=== PATIENT | female | born 1960 | race Caucasian/White ===

== ENCOUNTER 2018-07-17 15:03 | Outpatient (CLI) | payer OTHER ==
[2018-07-17 19:06] LABS: ALBUMIN 4.1 g/dL (3.2-5.5); ALBUMIN/GLOBULIN RATIO 1.6 (1.0-2.2); BILIRUBIN,TOTAL 0.6 mg/dL (0.2-1.0); CALCIUM 10.2 mg/dL (8.5-10.3); CREATININE 0.9 mg/dL (0.4-1.0); TOTAL PROTEIN 6.7 g/dL (6.7-8.2)
== END 2018-07-17 23:59 | disposition home or self-care (01) ==
LOC: LAB.WCP 15:03
PROVIDERS: ATTEND Family Medicine
DX: E87.5 Hyperkalemia (principal)
CPT/HCPCS: 36415; 80053

== ENCOUNTER 2019-07-01 08:00 | Outpatient (CLI) | payer OTHER ==
[2019-07-01 13:14] LABS: BASOPHILS # (AUTO) 0.1 10^3/uL (0.0-0.1); BASOPHILS % (AUTO) 0.7 %; EOSINOPHILS # (AUTO) 0.1 10^3/uL (0.0-0.7); EOSINOPHILS % (AUTO) 1.5 %; HGB - HEMOGLOBIN 16.2 g/dL (12.0-16.0); LYMPHOCYTES # (AUTO) 2.4 10^3/uL (1.5-3.5); LYMPHOCYTES % (AUTO) 25.4 %; MEAN CORPUSCULAR HEMOGLOBIN 33.6 pg (27.0-31.0); MEAN CORPUSCULAR HGB CONC 32.7 g/dL (32.0-36.0); MEAN CORPUSCULAR VOLUME 102.9 fL (81.0-99.0); MEAN PLATELET VOLUME 11.5 fL (7.9-10.8); MONOCYTES # (AUTO) 0.7 10^3/uL (0.0-1.0); MONOCYTES % (AUTO) 7.7 %; NEUTROPHILS # (AUTO) 6.1 10^3/uL (1.5-6.6); NEUTROPHILS % (AUTO) 64.1 %; PLT - PLATELET COUNT 195 10^3/uL (130-450); RED BLOOD COUNT 4.82 10^6/uL (4.20-5.40); RED CELL DISTRIBUTION WIDTH 14.9 % (12.0-15.0); WHITE BLOOD COUNT 9.5 x10^3/uL (4.8-10.8)
[2019-07-01 13:55] LABS: ALBUMIN 4.2 g/dL (3.2-5.5); ALBUMIN/GLOBULIN RATIO 1.4 (1.0-2.2); ALKALINE PHOSPHATASE 43 IU/L (42-121); ALT ALANINE AMINOTRANSFERASE 22 IU/L (10-60); AST ASPARTATE AMINOTRANSFERASE 19 IU/L (10-42); BILIRUBIN,TOTAL 0.6 mg/dL (0.2-1.0); BUN - BLOOD UREA NITROGEN 19 mg/dL (6-20); CARBON DIOXIDE - CO2 26 mmol/L (21-32); CHLORIDE 105 mmol/L (101-111); CHOL/HDL RATIO 1.7 (<4.4); CHOLESTEROL 141 mg/dL; CREATININE 0.8 mg/dL (0.4-1.0); GLUCOSE 129 mg/dL (70-100); HDL CHOLESTEROL 82 mg/dL; LDL CHOLESTEROL,CALCULATED 49 mg/dL; LDL/HDL RATIO 0.6 (<4.4); SODIUM 138 mmol/L (135-145); TOTAL PROTEIN 7.2 g/dL (6.7-8.2); VLDL CHOLESTEROL 10 mg/dL
[2019-07-01 13:57] LABS: HB2 TOTAL 17.2 g/dL; HEMOGLOBIN A1C 0.72 g/dL
[2019-07-01 13:59] LABS: CREATININE,URINE 68.4 mg/dL; MICROALBUM/CREATININE RATIO,UR 4.4 ug/mg (<30.0); MICROALBUMIN,URINE 0.3 mg/dL (0-300.0)
== END 2019-07-01 23:59 ==
LOC: LAB.WCP 08:00
PROVIDERS: ATTEND Physician Assistant Medical
DX: I10 Essential (primary) hypertension (principal); E78.5 Hyperlipidemia, unspecified; E11.9 Type 2 diabetes mellitus without complications
CPT/HCPCS: 36415; 80053; 80061; 82043; 82570; 83036; 83721; 84443; 85025

== ENCOUNTER → 2020-01-07 | Outpatient (CLI) | payer MEDICAID, OTHER ==
[2020-01-07 16:13] LABS: BILIRUBIN,URINE NEGATIVE (NEGATIVE); CLARITY,URINE CLEAR (CLEAR); GLUCOSE, URINE (UA) 500 mg/dL (NEGATIVE); KETONES,URINE (UA) NEGATIVE (NEGATIVE); LEUKOCYTE ESTERASE, URINE TRACE (NEGATIVE); NITRITE,URINE NEGATIVE (NEGATIVE); OCCULT BLOOD,URINE NEGATIVE (NEGATIVE); PROTEIN,URINE NEGATIVE (NEGATIVE); UROBILINOGEN,URINE 0.2 (NORMAL) E.U./dL (NORMAL)
[2020-01-07 16:26] LABS: BACTERIA,URINE Few /HPF (None Seen); RBC,URINE None Seen /HPF (0-5); SQUAMOUS EPITHELIAL CELL,UR MOD Squamous (<= Few)
== END ==
LOC: LAB.N 12:30
DX: M25.552 Pain in left hip (principal)
CPT/HCPCS: 81001; 81003; 87086

== ENCOUNTER 2020-01-08 20:46 | Emergency (ER) | payer MEDICAID, OTHER ==
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
[2020-01-08] MEDS ORDERED: diazePAM 5 MG TABLET PO STA (22:41)
[2020-01-08] MEDS: HYDROcod/ACETAM 5/325 MG TABLET PO STA (23:11)
[2020-01-09 00:53] VITALS: BP 142/65
--- NOTE | 2020-01-09 07:18 | XRAY Report ---
PROCEDURE: Lumbar Spine 2 View INDICATIONS: low back pain TECHNIQUE: 2 views of the lumbar spine were acquired. COMPARISON: None. FINDINGS: Bones: 6 [id number] vertebrae are present. Questionable pars defect at L5 resulting in trace an terolisthesis L5 on L6. Moderate disc height loss and mild endplate spurring at L4-5. Mild disc space narrowing at the other levels.. No vertebral body compression fractures. No suspicious bony lesion s. Soft tissues: Overlying bowel gas pattern is normal. No suspicious soft tissue calcifications. Mode rate abdominal aortic calcification. Tubal ligation clips. Right hip prosthesis. IMPRESSION: 1. Possible pars defects at L5 and anterolisthesis at L5 6. Consider MRI for further evaluation of ne ural foramen and central canal. 2. Multilevel disc degeneration. 3. Concordant with preliminary report. Reviewed by: Raina Manzanares MD on 01/09/2020 7:17 AM PST Approved by: Raina Manzanares MD on 01/09/2020 7:17 AM PST Station ID: [id number]
== END 2020-01-09 00:52 | disposition home or self-care (01) ==
LOC: ED 20:46
DX: M51.36 Other intervertebral disc degeneration, lumbar region (principal); I10 Essential (primary) hypertension; E10.9 Type 1 diabetes mellitus without complications; Z79.82 Long term (current) use of aspirin
CPT/HCPCS: 72100; 99283; A9270

== ENCOUNTER 2020-03-03 07:00 | Outpatient (CLI) | payer MEDICAID | END 2020-03-03 23:59 | disposition home or self-care (01) | LOC: COV 07:00 | PROVIDERS: ATTEND Surgery | DX: Z01.812 Encounter for preprocedural laboratory examination (principal); K62.9 Disease of anus and rectum, unspecified; E11.9 Type 2 diabetes mellitus without complications; Z79.4 Long term (current) use of insulin; Z20.822 Contact with and (suspected) exposure to COVID-19 ==

== ENCOUNTER 2020-03-07 07:24 | Day surgery (SDC) | payer MEDICAID ==
[~2020-03-07 07:24] MED LIST: ceFAZolin 2 GM/50 ML 2 GM/50 ML BAG IV ONE
[2020-03-07] MEDS ORDERED: LACTATED RINGERS 1,000 ML IV ONE ×2 (07:30→09:31)
--- NOTE | 2020-03-07 08:08 | ANESTHESIA ---
Pre-Anesthesia VS, & Labs - Diagnosis possible anal cancer - Procedure EUA with biopsies Vital Signs: Temp Pulse Resp BP Pulse Ox 36 C L 86 12 131/108 H 12 L 03/07/20 07:41 03/07/20 07:41 03/07/20 07:41 03/07/20 07:41 03/07/20 07:41 Height: 5 ft 6 in Weight (kg): 103 kg Body Mass Index: 36.6 BMI Classification: Obese - NPO >8 hours - Is Patient ?: No - Lab Results Lab results reviewed: Yes Home Medications and Allergies Home Medications: Ambulatory Orders Lactobacillus Acidophilus [Probiotic Acidophilus] 1 each PO DAILY 03/02/20 Multivitamin 1 each PO DAILY 03/02/20 Turmeric Root Extract [Turmeric] 500 mg PO DAILY 03/02/20 Aspirin [Aspirin EC] 81 mg PO DAILYWM 01/08/20 Calcium Carbonate [Calcium] 1 tab PO DAILY 01/08/20 Canagliflozin [Invokana] 1 tab PO DAILY 01/08/20 Insulin Glargine [Lantus Solostar] 18 - 40 unit SQ DAILY 01/08/20 Lisinopril [Zestril] 20 mg PO DAILY 01/08/20 Simvastatin [Zocor] 40 mg PO DAILY 01/08/20 Vitamin E 800 intlu PO DAILY 01/08/20 metFORMIN [Glucophage] 1,000 mg PO BID 01/08/20 Lactobacillus Acidophilus [Probiotic Acidophilus] 1 each PO DAILY 03/02/20 Multivitamin 1 each PO DAILY 03/02/20 Turmeric Root Extract [Turmeric] 500 mg PO DAILY 03/02/20 Allergies/Adverse Reactions: Allergies Allergy/AdvReac Type Severity Reaction Status Date / Time No Known Drug Allergies Allergy Verified 01/08/20 21:00 Anes History & Medical History - Anesthetic History Anesthesia Complications: reports: No previous complications Family history of Anesthesia Complications: Denies Family history of Malignant Hyperthermia: Denies - Medical History Cardiovascular: reports: Hypertension, High cholesterol Pulmonary: reports: None Gastrointestinal: reports: None Urinary: reports: None Musculoskeletal: reports: Osteoarthritis Endocrine/Autoimmune: reports: Type 2 diabetes Skin: reports: None Smoking Status: Current every day smoker (1 ppd) Psychosocial: reports: Alcohol - Surgical History Gynecologic: section Orthopedic: Hip replacement Exam General: Alert, Oriented x3, Cooperative, No acute distress Dental: WNL Mouth Openin Fingerbreadth Neck Mobility: Normal Mallampati classification: II Respiratory: Lungs clear, Normal breath sounds, No respiratory distress, No accessory muscle use Cardiovascular: Regular rate, Normal S1, Normal S2, No murmurs Plan Anesthesia Type: MAC Consent for Procedure(s) Verified and Reviewed: Yes Code Status: Attempt Resuscitation ASA classification: 3-Severe systemic disease Is this case an emergency?: No
[2020-03-07] MEDS ORDERED: MIDAZOLAM 2 MG/2 ML VIAL ONE (08:10)
[2020-03-07] MEDS ORDERED: fentaNYL 100 MCG/2 ML VIAL ONE (08:10)
[2020-03-07] MEDS ORDERED: ONDANSETRON 4 MG/2 ML VIAL IVP PRN (08:11)
[2020-03-07] MEDS ORDERED: fentaNYL 100 MCG/2 ML VIAL IVP PRN (08:11)
[2020-03-07] MEDS ORDERED: PROPOFOL 200 MG/20 ML VIAL IVP ONE ×2 (08:11→09:19)
[2020-03-07] MEDS ORDERED: NALOXONE 0.4 MG/ML VIAL IVP PRN (08:11)
[2020-03-07] MEDS ORDERED: ePHEDrine 50 MG/ML VIAL IVP PRN (08:11)
[2020-03-07] MEDS ORDERED: HYDROmorphone 0.5 MG/0.5 ML SYRINGE IVP PRN (08:11)
[2020-03-07] MEDS ORDERED: ATROPINE ABBOJECT 1 MG/10 ML SYRINGE IVP PRN (08:11)
[2020-03-07] MEDS ORDERED: METOCLOPRAMIDE 10 MG/2 ML VIAL IVP PRN (08:11)
[2020-03-07] MEDS ORDERED: MORPHINE 2 MG/ML CARPUJECT IVP PRN (08:11)
[2020-03-07] MEDS ORDERED: LIDOCAINE-MPF 2% 5 ML VIAL ONE (08:11)
[2020-03-07] MEDS ORDERED: BUPIVACAINE 0.25% PF 30 ML VIAL ONE (08:55)
[2020-03-07] MEDS ORDERED: LACTATED RINGERS 1,000 ML IV SCH (09:00)
[2020-03-07] MEDS ORDERED: LIDOCAINE 1% 50 ML MDV ONE (09:12)
[2020-03-07] MEDS ORDERED: LIDOCAINE 1% 50 ML MDV SUBQ ONE ×2 (09:14)
[2020-03-07] MEDS ORDERED: BUPIVACAINE 0.25% PF 30 ML VIAL SUBQ ONE ×2 (09:14)
[2020-03-07] MEDS ORDERED: HYDROcod/ACETAM 5/325 MG TABLET PO PRN (09:35)
--- NOTE | 2020-03-07 09:35 | OPERATIVE REPORT ---
Operative Report - General Procedure Date: 03/07/20 Planned Procedure: examination under anesthesia with biopsies Pre-Op Diagnosis: anal mass, possible anal carcinoma Procedure Performed: examination under anesthesia with biopsies Post Op Diagnosis: same - Procedure Note Secondary Surgeon: markus ashraf md Anesthesia Technique: Local, MAC Pathology: 2 specimens sent to path Estimated Blood Loss (mL): 10 Indications: anal mass and pain Findings: 6 to 7 cm mass right perianal area depth nearly 2 cm up to dentate line Complications: none
--- NOTE | 2020-03-07 09:37 | ANESTHESIA POST OP EVALUATION ---
Anesthesia Post Eval - Post Anesthesia Eval Vitals: Last Vital Signs Temp 37 C 03/07/20 09:31 Pulse 78 03/07/20 09:31 Resp 18 03/07/20 09:31 BP 103/60 03/07/20 09:31 Pulse Ox 97 03/07/20 09:31 CV Function Including HR & BP: positive: Stable Pain Control: positive: Satisfactory Nausea & Vomiting: positive: Negative Mental Status: positive: Baseline Respiratory Status: Airway Patent Hydration Status: Satisfactory Anesthesia Complications: positive: None
[2020-03-07 09:56] VITALS: BP 124/80
[2020-03-07] MEDS ORDERED: HYDROcod/ACETAM 5/325 MG TABLET ONE (10:07)
--- NOTE | 2020-03-07 10:55 | OPERATIVE REPORT ---
DATE OF SERVICE: 03/07/2020 Physician: Jairon Flores MD PREOPERATIVE DIAGNOSIS: Anal mass. POSTOPERATIVE DIAGNOSIS: Anal mass. PROCEDURE PERFORMED: Examination under anesthesia with biopsy. SURGEON: Jairon Flores MD. CARTOON ARTIST: None. ANESTHESIA: Monitored anesthesia care, IV sedation, and local anesthesia. COMPLICATIONS: None. SPECIMENS: Two specimens sent, permanent, for pathology. ESTIMATED BLOOD LOSS: 10 mL. DRAINS: None. INDICATIONS FOR PROCEDURE: The patient is a 59-year-old, otherwise quite healthy, who thought she higgins d a boil on her perianal area starting about 1 year ago. Recently, she has developed a progressively growing mass with progressively increasing pain over the last 3 months. She presents for examinatio n under anesthesia with biopsies. Risks discussed, alternatives discussed, all questions answered, a nd consent obtained. FINDINGS: An approximately 6-7 cm right perianal mass perhaps 2 cm deep extending to the dentate marcus e. DETAILS OF PROCEDURE: The patient was properly identified, brought to the operating room, and placed in the supine position. Monitored anesthesia care was given as well as IV sedation. She was reposi tioned in low lithotomy. She was prepped and draped in a sterile fashion, given preoperative antibio tics. A digital rectal examination revealed a right perianal mass up to the dentate line. There was no stenosis. There was a mild purulence present at the anal verge. The mass was approximately 6-7 cm, right perianal, and had the appearance of an invasion, full thickness, through the dermis. A spe cimen was taken at approximately 7 o'clock. An additional specimen was taken at approximately 9 o'cl ock. Hemostasis was achieved with cautery. A dry gauze followed by pad was placed. She tolerated t he procedure well, was brought to recovery in good condition. TD: 03/07/2020 10:12
== END 2020-03-07 07:25 | disposition home or self-care (01) ==
LOC: SDS 07:24
PROVIDERS: ATTEND Surgery
PROC: 0DBQXZX Excision of Anus, External Approach, Diagnostic (ICD-10-PCS; principal; 2020-03-07 08:30)
DX: C21.0 Malignant neoplasm of anus, unspecified (principal); E11.9 Type 2 diabetes mellitus without complications; I10 Essential (primary) hypertension; F17.210 Nicotine dependence, cigarettes, uncomplicated; E78.00 Pure hypercholesterolemia, unspecified; E66.9 Obesity, unspecified; Z68.36 Body mass index [BMI] 36.0-36.9, adult; Z79.82 Long term (current) use of aspirin; Z79.4 Long term (current) use of insulin; Z79.899 Other long term (current) drug therapy
CPT/HCPCS: 46999; A9270; J0690; J7120

== ENCOUNTER 2020-03-10 14:34 | Outpatient (CLI) | payer MEDICAID | END 2020-03-10 14:35 | disposition home or self-care (01) | LOC: LAB 14:34 | PROVIDERS: ATTEND Surgery | DX: Z01.812 Encounter for preprocedural laboratory examination (principal); C21.0 Malignant neoplasm of anus, unspecified; E11.9 Type 2 diabetes mellitus without complications; Z20.822 Contact with and (suspected) exposure to COVID-19 ==

== ENCOUNTER 2020-03-14 07:26 | Day surgery (SDC) | payer MEDICAID ==
[~2020-03-14 07:26] MED LIST changes: +LACTATED RINGERS 1,000 ML IV ONE; -ceFAZolin 2 GM/50 ML 2 GM/50 ML BAG IV ONE
[2020-03-14] MEDS ORDERED: ceFAZolin 2 GM/50 ML 2 GM/50 ML BAG IV ONE (07:28)
--- NOTE | 2020-03-14 07:57 | ANESTHESIA ---
Pre-Anesthesia VS, & Labs - Diagnosis anal cancer - Procedure port placement Vital Signs: Temp Pulse Resp BP Pulse Ox 36.0 C L 91 20 125/69 97 03/14/20 07:42 03/14/20 07:42 03/14/20 07:42 03/14/20 07:42 03/14/20 07:42 Height: 5 ft 7 in Weight (kg): 100.9 kg Body Mass Index: 34.8 BMI Classification: Obese - NPO >8 hours - Is Patient ?: No Home Medications and Allergies Aspirin [Aspirin EC] 81 mg PO DAILYWM 01/08/20 Calcium Carbonate [Calcium] 1 tab PO DAILY 01/08/20 Canagliflozin [Invokana] 1 tab PO DAILY 01/08/20 Insulin Glargine [Lantus Solostar] 18 - 40 unit SQ DAILY 01/08/20 Lisinopril [Zestril] 20 mg PO DAILY 01/08/20 Simvastatin [Zocor] 40 mg PO DAILY 01/08/20 Vitamin E (Dl,Tocopheryl Acet) [Vitamin E] 800 intlu PO DAILY 01/08/20 metFORMIN [Glucophage] 1,000 mg PO BID 01/08/20 Lactobacillus Acidophilus [Probiotic Acidophilus] 1 each PO DAILY 03/02/20 Multivitamin 1 each PO DAILY 03/02/20 Turmeric Root Extract [Turmeric] 500 mg PO DAILY 03/02/20 Allergies/Adverse Reactions: Allergies Allergy/AdvReac Type Severity Reaction Status Date / Time No Known Drug Allergies Allergy Verified 03/14/20 07:36 Anes History & Medical History - Anesthetic History Family history of Anesthesia Complications: Denies Family history of Malignant Hyperthermia: Denies - Medical History Cardiovascular: reports: Hypertension, High cholesterol Pulmonary: reports: Other (smoker) Gastrointestinal: reports: None Urinary: reports: None Musculoskeletal: reports: Osteoarthritis Endocrine/Autoimmune: reports: Type 2 diabetes Skin: reports: None Smoking Status: Current every day smoker History of Cancer?: Yes (anal cancer) - Surgical History General: Other Gynecologic: section Orthopedic: Hip replacement Exam General: Alert, Oriented x3, Cooperative, No acute distress Mouth Openin Fingerbreadth Mallampati classification: II Thyromental Distance: 4-6 cm Respiratory: Lungs clear, Normal breath sounds, No respiratory distress, No accessory muscle use Cardiovascular: Regular rate, Normal S1, Normal S2, No murmurs Mental/Cognitive Status: Alert/Oriented X3, Normal for patient Cognitive Status: Within normal limits Plan Anesthesia Type: MAC (discussed and consented pt for GA as backup plpan) Consent for Procedure(s) Verified and Reviewed: Yes Code Status: Attempt Resuscitation ASA classification: 3-Severe systemic disease Is this case an emergency?: No
[2020-03-14] MEDS ORDERED: NALOXONE 0.4 MG/ML VIAL IVP PRN (08:01)
[2020-03-14] MEDS ORDERED: ePHEDrine 50 MG/ML VIAL IVP PRN (08:01)
[2020-03-14] MEDS ORDERED: ATROPINE ABBOJECT 1 MG/10 ML SYRINGE IVP PRN (08:01)
[2020-03-14] MEDS ORDERED: MORPHINE 2 MG/ML CARPUJECT IVP PRN (08:01)
[2020-03-14] MEDS ORDERED: ALBUTEROL NEB 2.5 MG/3 ML INH PRN (08:01)
[2020-03-14] MEDS ORDERED: ONDANSETRON 4 MG/2 ML VIAL IVP PRN (08:01)
[2020-03-14] MEDS ORDERED: fentaNYL 100 MCG/2 ML VIAL IVP PRN (08:01)
[2020-03-14] MEDS ORDERED: HYDROmorphone 0.5 MG/0.5 ML SYRINGE IVP PRN (08:01)
[2020-03-14] MEDS ORDERED: LIDOCAINE 1% 50 ML MDV ONE (08:10)
[2020-03-14] MEDS ORDERED: BUPIVACAINE 0.5% PF 30 ML VIAL ONE (08:10)
[2020-03-14] MEDS ORDERED: BUPIVACAINE 0.25% PF 30 ML VIAL ONE (08:15)
[2020-03-14] MEDS ORDERED: fentaNYL 100 MCG/2 ML VIAL ONE (08:27)
[2020-03-14] MEDS ORDERED: PROPOFOL 500 MG/50 ML 500 MG/50 ML VIAL ONE (08:27)
[2020-03-14] MEDS ORDERED: MIDAZOLAM 2 MG/2 ML VIAL ONE (08:27)
[2020-03-14] MEDS ORDERED: HYDROmorphone 1 MG/ML CARPUJECT ONE (08:37)
[2020-03-14] MEDS ORDERED: LACTATED RINGERS 1,000 ML IV SCH (09:00)
[2020-03-14] MEDS ORDERED: LIDOCAINE 1% 50 ML MDV SUBQ ONE ×3 (09:03)
[2020-03-14] MEDS ORDERED: BUPIVACAINE 0.25% PF 30 ML VIAL SUBQ ONE ×2 (09:03)
[2020-03-14] MEDS ORDERED: LACTATED RINGERS 1,000 ML IV ONE (09:57)
[2020-03-14] MEDS ORDERED: HYDROcod/ACETAM 5/325 MG TABLET PO ONE (10:07)
[2020-03-14] MEDS ORDERED: HYDROcod/ACETAM 5/325 MG TABLET PO PRN (10:08)
[2020-03-14 10:23] VITALS: BP 113/79
--- NOTE | 2020-03-14 10:24 | ANESTHESIA POST OP EVALUATION ---
Anesthesia Post Eval - Post Anesthesia Eval Vitals: Last Vital Signs Temp 36.5 C 03/14/20 10:22 Pulse 68 03/14/20 10:22 Resp 16 03/14/20 10:22 BP 113/79 03/14/20 10:22 Pulse Ox 99 03/14/20 10:22 CV Function Including HR & BP: positive: Stable Pain Control: positive: Satisfactory Nausea & Vomiting: positive: Negative Mental Status: positive: Baseline Respiratory Status: Airway Patent Hydration Status: Satisfactory Anesthesia Complications: positive: None
--- NOTE | 2020-03-14 10:26 | OPERATIVE REPORT ---
Operative Report - General Procedure Date: 03/14/20 Planned Procedure: port placement for chemotherapy Pre-Op Diagnosis: anal cancer Procedure Performed: left subclavian vein powerport placement Post Op Diagnosis: same - Procedure Note Primary Surgeon: markus ashraf Anesthesia Technique: Local, MAC Estimated Blood Loss (mL): 5 Findings: good placement position and flush/ aspiration Complications: none
--- NOTE | 2020-03-14 10:37 | XRAY Report ---
PROCEDURE: OR Port-A-Cath INDICATIONS: PORT PLACEMENT TECHNIQUE: Single intraoperative C-arm view. COMPARISON: None. FINDINGS: There is a Port-A-Cath from left-sided approach traversing into the upper margin of the right atrium, with the upper aspect of the Port-A-Cath device and left upper lobe not visible at this time. IMPRESSION: Limited evaluation during operative procedure, with Port-A-Cath tip in the upper right atrium, and th e upper aspect of the Port-A-Cath on the left and left lung apex is not visible for review. Reviewed by: Tonny Ayers MD on 03/14/2020 10:35 AM PST Approved by: Tonny Ayers MD on 03/14/2020 10:35 AM PST Station ID: [id number]
--- NOTE | 2020-03-14 11:28 | PROCEDURE REPORT ---
DATE OF SERVICE: 03/14/2020 Physician: Jairon Flores MD PREOPERATIVE DIAGNOSIS: Anal cancer, need for chemotherapy port. POSTOPERATIVE DIAGNOSIS: Anal cancer, need for chemotherapy port. PROCEDURE PERFORMED: 1. Left subclavian vein PowerPort placement. 2. Fluoroscopic guidance for placement. SURGEON: Jairon Flores MD LEGAL DOCUMENT SPECIALIST: None. ANESTHESIA: Monitored anesthesia care, IV sedation, local anesthesia. COMPLICATIONS: None. SPECIMEN: None. ESTIMATED BLOOD LOSS: 5 mL DRAINS: None. FINDINGS: Tip of the Gbub-P-Ufmofrvk placed at the junction of the atrium and the superior vena cava . In this position it flushed and aspirated very easily. INDICATIONS FOR PROCEDURE: The patient is a 59-year-old, otherwise healthy with significant anal dis comfort and mass over the last few months. A biopsy was performed confirming anal cancer. She prese nts for Sxfg-L-Iccvhitk placement. Risks discussed, alternatives discussed. All questions answered and consent obtained. DETAILS OF THE PROCEDURE: The patient was properly identified and brought to the operating room and placed in supine position. Monitored anesthesia care was given as well as IV sedation. She was repo sitioned with towel roll between her scapulae and both arms tucked. She was prepped and draped in a sterile fashion, given preoperative antibiotics. Local anesthetic was given to the surgical area. T he left subclavian vein was accessed, first passed with a needle. Guidewire was placed and position confirmed under fluoroscopy. A subcutaneous pocket approximately 3 cm-3.5 cm incision was made in th e left upper chest. Hemostasis was assured. Pvpl-S-Obvzuyuc tubing was then placed through a subcuta neous tunnel up to the access point. Nmju-V-Ghsudlpv tubing was then easily placed with a dilator pu ll-away sheath. Catheter was pulled back to the desired above position. Dpmz-C-Sxifodrw flushed and aspirated very easily in this location. The Acky-J-Drdevgqk tubing was cut to size and port further assembled. The port was secured with 2 interrupted 5-0 Prolene sutures. Buried interrupted subderm al 3-0 Vicryl sutures were then placed. Skin was closed with a buried interrupted 4-0 Monocryl in a running subcuticular. Dressings were applied. She tolerated the procedure well. TD: 03/14/2020 10:35
== END 2020-03-14 07:27 | disposition home or self-care (01) ==
LOC: SDS 07:26
PROVIDERS: ATTEND Surgery
DX: C21.0 Malignant neoplasm of anus, unspecified (principal); E11.9 Type 2 diabetes mellitus without complications; I10 Essential (primary) hypertension; E78.00 Pure hypercholesterolemia, unspecified; F17.210 Nicotine dependence, cigarettes, uncomplicated; E66.9 Obesity, unspecified; Z68.34 Body mass index [BMI] 34.0-34.9, adult; Z79.82 Long term (current) use of aspirin; Z79.4 Long term (current) use of insulin; Z79.899 Other long term (current) drug therapy
CPT/HCPCS: 36561; A9270; C1788; J0690; J1170; J7120

== ENCOUNTER 2020-03-24 09:20 | Outpatient (CLI) | payer MEDICAID ==
[2020-03-24 12:16] LABS: HEMOGLOBIN A1c% 6.1 % (4.27-6.07)
[2020-03-24 12:22] LABS: CALCIUM 10.7 mg/dL (8.5-10.3); CREATININE 0.9 mg/dL (0.4-1.0)
[2020-03-25 12:52] LABS: HEPATITIS C ANTIBODY NON-REACTIVE (NON-REACTIVE)
== END 2020-03-24 23:59 ==
LOC: LAB.WCP 09:20
PROVIDERS: ATTEND Physician Assistant Medical
DX: Z01.84 Encounter for antibody response examination (principal); E11.9 Type 2 diabetes mellitus without complications
CPT/HCPCS: 36415; 80048; 83036; 86803

== ENCOUNTER 2020-04-04 08:00 | Outpatient (CLI) | payer MEDICAID ==
[2020-04-04 13:50] LABS: CALCIUM 10.6 mg/dL (8.5-10.3); CREATININE 0.9 mg/dL (0.4-1.0)
== END 2020-04-04 23:59 | disposition home or self-care (01) ==
LOC: LAB.WCP 08:00
PROVIDERS: ATTEND Physician Assistant Medical
DX: E83.52 Hypercalcemia (principal)
CPT/HCPCS: 36415; 80048; 83970

== ENCOUNTER 2020-04-07 14:28 | Outpatient (CLI) | payer MEDICAID ==
[2020-04-07] MEDS ORDERED: GADOBUTROL 10 MMOL/10 ML VIAL ONE (15:41)
[2020-04-07] MEDS ORDERED: GADOBUTROL 10 MMOL/10 ML VIAL IVP ONE (18:49)
--- NOTE | 2020-04-10 18:13 | MRI Report ---
PROCEDURE: Pelvis W/WO INDICATIONS: ANAL CA TECHNIQUE: Coronal HASTE, sagittal T2 FSE, axial T1 FSE, axial and coronal nonbreath-hold T2 FSE. Axial dynamic VIBE during administration of contrast. Post-contrast axial and coronal VIBE/2-D FLASH with fat sat uration from the iliac crests to the symphysis. Optional diffusion weighted imaging and ADC may be p erformed. COMPARISON: None available FINDINGS: Image quality: Suboptimal postcontrast sequences.. Anal canal: Morphology: There is a plaque-like tumor within the renal canal and extending caudal spreading anter iorly and posteriorly along the right peroneal surface. Clock face of tumor involvement: Primarily 6-12 o'clock Mucinous (high T2 signal): Minimally increased T2 signal. Craniocaudal length: 8.8 cm Distance to anal verge: Involving the lower sphincter complex and penetrating through both internal and external sphincter as seen on series 103 image 27. Distance to top of sphincter complex/anorectal junction: Begins at/ immediately below the anorectal junction. Pelvic organ involvement: Genitourinary: The tumor Appears to involve the posterior part of the peroneal body and introitus. I nternally, the rectovaginal septum appears maintained. The uterus is retroverted and contains a small left fundal fibroid. The urethra remains normal. Urinary bladder appears within normal limits. Regional lymph nodes: There are a few prominent right internal iliac chain nodes which are enlarged, one measures 7 mm in short axis (series 1101 image 106), and a small round node just caudal to this measuring 6 mm (image 97). No bulky inguinal adenopathy. Osseous structures and soft tissues: Right hip arthroplasty change. No suspicious marrow signal or en hancement. There is mild right muscular atrophy compared to the contralateral side, likely post surgi ilene change. IMPRESSION: 1. 8.8 cm right-sided anal tumor as described. 2. Prominent right internal iliac chain lymph nodes suspicious for lymph node involvement. Reviewed by: Raina Manzanares MD on 04/10/2020 5:11 PM AKST Approved by: Raina Manzanares MD on 04/10/2020 5:11 PM AKST Station ID: [id number]
--- NOTE | 2020-04-11 09:13 | ONCOLOGY/HEMATOLOGY VISIT ---
HEME/ONC PROGRESS NOTE: ASSESSMENT/PLAN: 1. Squamous cell carcinoma of anal canal, p16+: -Chemotherapy education completed and consent signed for proceeding with mitomycin and capecitabine planned in conjunction with radiation at [facility]. Copy of consent provided to patient. She is awaiting imaging 04/18/2020 for radiation planning, to start XRT early April. Aiming to begin mitomycin at her follow-up visit on 04/28/2020. Mitomycin will be given on day 1 and day 29. She is awaiting delivery of oral capecitabine for planned dose of 800 mg once a day and 950 mg once a day at 12-hour intervals on days of radiation only; did receive a call from [employer] with medication in process. Interim imaging reviewed including MRI pelvis 04/07/20 showing 8.8 cm right sided anal tumor with prominent right internal iliac chain lymph node suspicious for lymph node involvement. 2. Pain due to cancer: Oxycodone 5 mg tablets will be refilled for pain as requested. She is currently using about 4 to 5 tablets for breakthrough pain in addition to long-acting morphine twice daily. 3. Port-A-Cath in place: We will send Rx for EMLA topical anesthetic. 4. Nausea management: Low emetic potential with mitomycin and capecitabine. Will send Rx for prochlorperazine 10 mg every 6 hours as needed for nausea to pharmacy. Avoiding ondansetron due to potential side effect of constipation given current bowel issues. 5. Constipation/bowel care: Given large anal tumor and opiods, encouraged ongoing attention to bowel habits with use of OTCs as needed. Currently using MiraLAX twice daily. DISCUSSION: Nora is a 59 arriving with her Eliot for discussion of proposed chemotherapy treatment of anal cancer. Today we discussed recommended treatment utilizing oral capecitabine taken twice daily on days of radiation and IV mitomycin given x2 doses at a 4-week interval. We discussed potential adverse effects of treatment including those to the bone marrow leading to increased risk of infection, anemia and bleeding; fatigue; oral discomfort; taste change; diarrhea or constipation; reduced appetite; nausea or vomiting; organ toxicity including kidneys, liver, heart; neurologic toxicity including peripheral neuropathy; allergic reaction; body aches; fever, chills; rash. Information regarding additional details of treatment was printed from [email or web address] and provided to patient. I advised oral hygiene with saline/baking soda rinses several times per day as needed for mouth sores. Ample hydration of minimum 2 L/day was encouraged. We discussed nausea management of this regimen with prescriptions per plan above. Patient was provided with treatment handbook with general information regarding chemotherapy and contact information should questions or concerns arise. We discussed symptoms which should trigger a call including fever to 100.4 degrees or any new or concerning signs or symptoms. We discussed plan for monitoring including labs weekly and office visit intermittently. Throughout our appointment, patient was provided with opportunity to ask questions all of which were addressed. Patient demonstrated excellent understanding of the plan with asking/answering questions a ppropriately. Clinical Data: Allergies No Known Drug Allergies Allergy (Verified 03/31/20 11:48)
== END 2020-04-07 14:29 | disposition home or self-care (01) ==
LOC: DI 14:28
PROVIDERS: ATTEND Internal Medicine Hematology & Oncology
DX: C21.0 Malignant neoplasm of anus, unspecified (principal); R59.0 Localized enlarged lymph nodes
CPT/HCPCS: 72197; A9585

== ENCOUNTER 2020-07-21 08:00 | Outpatient (CLI) | payer MEDICAID ==
[2020-07-21 12:26] LABS: ESTIMATED AVERAGE GLUCOSE 111 mg/dL (70-100); HEMOGLOBIN A1c% 5.5 % (4.27-6.07)
[2020-07-21 12:30] LABS: CREATININE,URINE 38.2 mg/dL; MICROALBUM/CREATININE RATIO,UR 47.1 ug/mg (<30.0); MICROALBUMIN,URINE 1.8 mg/dL (0-300.0)
[2020-07-21 12:34] LABS: ALBUMIN 3.7 g/dL (3.2-5.5); ALBUMIN/GLOBULIN RATIO 1.3 (1.0-2.2); ALKALINE PHOSPHATASE 51 IU/L (42-121); ALT ALANINE AMINOTRANSFERASE 16 IU/L (10-60); AST ASPARTATE AMINOTRANSFERASE 18 IU/L (10-42); BILIRUBIN,TOTAL 0.5 mg/dL (0.2-1.0); BUN - BLOOD UREA NITROGEN 10 mg/dL (6-20); CALCIUM 9.7 mg/dL (8.5-10.3); CARBON DIOXIDE - CO2 25 mmol/L (21-32); CHLORIDE 107 mmol/L (101-111); CHOL/HDL RATIO 2.1 (<4.4); CHOLESTEROL 136 mg/dL; CREATININE 0.6 mg/dL (0.4-1.0); GFR - MDRD 102 (>89); GLUCOSE 86 mg/dL (70-100); HDL CHOLESTEROL 65 mg/dL; LDL CHOLESTEROL,CALCULATED 61 mg/dL; LDL/HDL RATIO 0.9 (<4.4); POTASSIUM 4.4 mmol/L (3.5-5.0); SODIUM 138 mmol/L (135-145); TOTAL PROTEIN 6.6 g/dL (6.7-8.2); TRIGLYCERIDES 52 mg/dL; VLDL CHOLESTEROL 10 mg/dL
[2020-07-21 12:37] LABS: THYROID STIMULATING HORMONE 1.03 uIU/mL (0.34-5.60)
== END 2020-07-21 23:59 | disposition home or self-care (01) ==
LOC: LAB.WCP 08:00
PROVIDERS: ATTEND Physician Assistant Medical
DX: E11.9 Type 2 diabetes mellitus without complications (principal)
CPT/HCPCS: 36415; 80053; 80061; 82043; 82570; 83036; 83721; 84443

== ENCOUNTER 2020-11-10 07:15 | Outpatient (CLI) | payer MEDICAID ==
[2020-11-10 13:57] LABS: CALCIUM 10.2 mg/dL (8.5-10.3); CREATININE 0.6 mg/dL (0.4-1.0); POTASSIUM 4.8 mmol/L (3.5-5.0)
[2020-11-10 15:04] LABS: ESTIMATED AVERAGE GLUCOSE 137 mg/dL (70-100); HEMOGLOBIN A1c% 6.4 % (4.27-6.07)
== END 2020-11-10 23:59 | disposition home or self-care (01) ==
LOC: LAB.WCP 07:15
PROVIDERS: ATTEND Physician Assistant Medical
DX: E11.9 Type 2 diabetes mellitus without complications (principal)
CPT/HCPCS: 36415; 80048; 83036

== ENCOUNTER 2021-02-09 11:05 | Outpatient (CLI) | payer MEDICAID ==
[2021-02-09 18:16] LABS: ALBUMIN 4.3 g/dL (3.2-5.5); ALBUMIN/GLOBULIN RATIO 1.5 (1.0-2.2); ALKALINE PHOSPHATASE 41 IU/L (42-121); ALT ALANINE AMINOTRANSFERASE 19 IU/L (10-60); AST ASPARTATE AMINOTRANSFERASE 23 IU/L (10-42); BILIRUBIN,TOTAL 0.7 mg/dL (0.2-1.0); BUN - BLOOD UREA NITROGEN 11 mg/dL (6-20); CALCIUM 10.5 mg/dL (8.5-10.3); CARBON DIOXIDE - CO2 23 mmol/L (21-32); CHLORIDE 103 mmol/L (101-111); CHOL/HDL RATIO 1.5 (<4.4); CHOLESTEROL 170 mg/dL; CREATININE 0.7 mg/dL (0.4-1.0); GFR - MDRD 85 (>89); HDL CHOLESTEROL 113 mg/dL; LDL CHOLESTEROL,CALCULATED 44 mg/dL; LDL/HDL RATIO 0.4 (<4.4); POTASSIUM 4.5 mmol/L (3.5-5.0); SODIUM 138 mmol/L (135-145); TOTAL PROTEIN 7.2 g/dL (6.7-8.2); TRIGLYCERIDES 63 mg/dL; VLDL CHOLESTEROL 13 mg/dL
[2021-02-09 18:22] LABS: GLUCOSE 54 mg/dL (70-100)
[2021-02-09 20:20] LABS: ESTIMATED AVERAGE GLUCOSE 134 mg/dL (70-100); HEMOGLOBIN A1c% 6.3 % (4.27-6.07)
== END 2021-02-09 23:59 | disposition home or self-care (01) ==
LOC: LAB.WCP 11:05
PROVIDERS: ATTEND Physician Assistant Medical
DX: E11.9 Type 2 diabetes mellitus without complications (principal)
CPT/HCPCS: 36415; 80053; 80061; 83036; 83721

== ENCOUNTER 2021-04-21 08:47 | Outpatient (CLI) | payer MEDICAID ==
[2021-04-21] MEDS ORDERED: IOVERSOL 320 100 ML VIAL IVP ONE ×2 (09:02→09:45)
[2021-04-21 09:22] LABS: CREATININE 0.7 mg/dL (0.4-1.0)
--- NOTE | 2021-04-25 15:42 | CT Report ---
PROCEDURE: CT neck with contrast INDICATIONS: 60-year-old female with history of anal cancer and left parotid subcentimeter nodule wi th decreasing mild FDG activity CONTRAST: IV CONTRAST: Optiray 320 ml: 100 PO CONTRAST: *NO PO CONTRAST TECHNIQUE: Helical axial CT of the neck was obtained after intravenous contrast demonstration. For radiation dose reduction, the following was used: automated exposure control, adjustment of mA and/o r kV according to patient size. COMPARISON: CT 03/02/2021 FINDINGS: Image quality: Excellent. Lymph nodes: No enlarged lymph nodes seen throughout the neck. Scattered nonenlarged deep cervical nodes noted, greater in the left. Vessels: Visualized vasculature appears patent. Neck spaces: The oropharynx, nasopharynx, and pharynx demonstrate no mucosal lesions. The vocal cor ds, false vocal cords, pyriform sinuses, epiglottis, vallecula, and tongue base all appear normal. E xtramucosal spaces appear unremarkable. Glands: In the left parotid, there is a 7 x 4 mm enhancing nodule posteriorly, corresponding with the prior prior PET/CT. Right parotid and both submandibular glands unremarkable. Miscellaneous: Visualized brain and orbits appear normal. Lung apices appear clear. Mild biapical pulmonary emphysematous changes. Superficial soft tissues appear normal. Bones: No suspicious bony lesions. Visualized sinuses and mastoids appear unremarkable. IMPRESSION: 1. Subcentimeter enhancing left parotid nodule corresponds with the prior PET/CT findings. Continued surveillance warranted. 2. Mild biapical pulmonary emphysema Reviewed by: Erwin Arguello MD on 04/25/2021 2:41 PM AKST Approved by: Erwin Arguello MD on 04/25/2021 2:41 PM AKST Station ID: [id number]
== END 2021-04-21 08:48 | disposition home or self-care (01) ==
LOC: LAB 08:47
PROVIDERS: ATTEND Internal Medicine Hematology & Oncology
DX: C21.1 Malignant neoplasm of anal canal (principal); K11.8 Other diseases of salivary glands; J43.9 Emphysema, unspecified
CPT/HCPCS: 36415; 70491; 82565; Q9967

== ENCOUNTER 2021-05-16 09:10 | Outpatient (CLI) | payer MEDICAID ==
[2021-05-16 12:19] LABS: ESTIMATED AVERAGE GLUCOSE 146 mg/dL (70-100); HEMOGLOBIN A1c% 6.7 % (4.27-6.07)
[2021-05-16 12:37] LABS: CREATININE 0.6 mg/dL (0.4-1.0); POTASSIUM 4.7 mmol/L (3.5-5.0)
== END 2021-05-16 09:11 | disposition home or self-care (01) ==
LOC: LAB.N 09:10
PROVIDERS: ATTEND Physician Assistant Medical
DX: E11.9 Type 2 diabetes mellitus without complications (principal)
CPT/HCPCS: 36415; 80048; 83036

== ENCOUNTER 2021-05-23 12:52 | Outpatient (CLI) | payer MEDICAID ==
--- NOTE | 2021-05-24 08:34 | Mammography Report ---
BILATERAL DIGITAL SCREENING MAMMOGRAM 3D/2D: 05/23/2021 CLINICAL: Family history of breast cancer. Routine screening. Comparison is made to exam dated: 03/08/2009 mammogram - [facility]. There are sca ttered fibroglandular elements in both breasts. No significant masses, calcifications, or other findings are seen in either breast. There has been no significant interval change. IMPRESSION: NEGATIVE There is no mammographic evidence of malignancy. A 1 year screening mammogram is recommended. This exam was interpreted at Station ID: [id number]. NOTE: For mammograms, a report in lay terms will be sent to the patient. Approximately 15% of breast malignancies will not be visualized mammographically. In the management of a palpable breast mass, a negative mammogram must not discourage biopsy of a clinically suspicious lesion. Electronically Signed By: Jori Salas M.D. aty/penrad:05/23/2021 14:00:10 ACR BI-RADS Category 1: Negative 3341F PARENCHYMAL PATTERN: (A) - The breast(s) demonstrate(s) scattered fibroglandular densities. BI-RADS CATEGORY: (1) - 1 RECOMMENDATION: (ANNUAL) - Recommend routine annual screening mammography. [id number] 1 year screening LATERALITY: (B)
== END 2021-05-23 12:53 | disposition home or self-care (01) ==
LOC: DI.N 12:52
DX: Z12.31 Encounter for screening mammogram for malignant neoplasm of breast (principal); Z80.3 Family history of malignant neoplasm of breast

== ENCOUNTER 2021-08-10 07:47 | Outpatient (CLI) | payer MEDICAID ==
[2021-08-10 11:33] LABS: BASOPHILS # (AUTO) 0.1 10^3/uL (0.0-0.1); BASOPHILS % (AUTO) 0.8 %; EOSINOPHILS # (AUTO) 0.1 10^3/uL (0.0-0.7); EOSINOPHILS % (AUTO) 1.7 %; HCT - HEMATOCRIT 45.6 % (37.0-47.0); HGB - HEMOGLOBIN 15.5 g/dL (12.0-16.0); LYMPHOCYTES # (AUTO) 0.8 10^3/uL (1.5-3.5); LYMPHOCYTES % (AUTO) 11.5 %; MEAN CORPUSCULAR HEMOGLOBIN 35.1 pg (27.0-31.0); MEAN CORPUSCULAR VOLUME 103.4 fL (81.0-99.0); MONOCYTES # (AUTO) 0.5 10^3/uL (0.0-1.0); MONOCYTES % (AUTO) 7.1 %; NEUTROPHILS # (AUTO) 5.7 10^3/uL (1.5-6.6); NEUTROPHILS % (AUTO) 78.5 %; PLT - PLATELET COUNT 184 10^3/uL (130-450); RED BLOOD COUNT 4.41 10^6/uL (4.20-5.40); RED CELL DISTRIBUTION WIDTH 13.8 % (12.0-15.0); WHITE BLOOD COUNT 7.2 x10^3/uL (4.8-10.8)
[2021-08-10 11:49] LABS: ALBUMIN 4.2 g/dL (3.2-5.5); ALBUMIN/GLOBULIN RATIO 1.4 (1.0-2.2); ALKALINE PHOSPHATASE 37 IU/L (42-121); ALT ALANINE AMINOTRANSFERASE 10 IU/L (10-60); AST ASPARTATE AMINOTRANSFERASE 16 IU/L (10-42); BILIRUBIN,TOTAL 0.6 mg/dL (0.2-1.0); BUN - BLOOD UREA NITROGEN 19 mg/dL (6-20); CALCIUM 10.1 mg/dL (8.5-10.3); CARBON DIOXIDE - CO2 27 mmol/L (21-32); CHLORIDE 102 mmol/L (101-111); CHOL/HDL RATIO 1.5 (<4.4); CHOLESTEROL 150 mg/dL; CREATININE 0.9 mg/dL (0.4-1.0); GFR - MDRD 63 (>89); GLUCOSE 134 mg/dL (70-100); HDL CHOLESTEROL 97 mg/dL; LDL CHOLESTEROL,CALCULATED 40 mg/dL; LDL/HDL RATIO 0.4 (<4.4); POTASSIUM 5.1 mmol/L (3.5-5.0); SODIUM 137 mmol/L (135-145); TOTAL PROTEIN 7.1 g/dL (6.7-8.2); TRIGLYCERIDES 66 mg/dL; VLDL CHOLESTEROL 13 mg/dL
[2021-08-10 12:00] LABS: CREATININE,URINE 125.7 mg/dL; MICROALBUM/CREATININE RATIO,UR 51.7 ug/mg (<30.0); MICROALBUMIN,URINE 6.5 mg/dL (0-300.0)
[2021-08-10 12:01] LABS: THYROID STIMULATING HORMONE 1.36 uIU/mL (0.34-5.60)
[2021-08-10 12:21] LABS: ESTIMATED AVERAGE GLUCOSE 157 mg/dL (70-100); HEMOGLOBIN A1c% 7.1 % (4.27-6.07)
== END 2021-08-10 07:48 | disposition home or self-care (01) ==
LOC: LAB.N 07:47
PROVIDERS: ATTEND Physician Assistant Medical
DX: E11.9 Type 2 diabetes mellitus without complications (principal); D75.1 Secondary polycythemia
CPT/HCPCS: 36415; 80053; 80061; 82043; 82570; 83036; 83721; 84443; 85025

== ENCOUNTER 2022-02-08 08:22 | Outpatient (CLI) | payer MEDICAID ==
[2022-02-08 12:52] LABS: ALBUMIN 4.3 g/dL (3.2-5.5); ALBUMIN/GLOBULIN RATIO 1.5 (1.0-2.2); ALKALINE PHOSPHATASE 43 IU/L (42-121); ALT ALANINE AMINOTRANSFERASE 15 IU/L (10-60); AST ASPARTATE AMINOTRANSFERASE 17 IU/L (10-42); BILIRUBIN,TOTAL 0.6 mg/dL (0.2-1.0); BUN - BLOOD UREA NITROGEN 17 mg/dL (6-20); CALCIUM 9.7 mg/dL (8.5-10.3); CARBON DIOXIDE - CO2 24 mmol/L (21-32); CHLORIDE 103 mmol/L (101-111); CHOL/HDL RATIO 1.6 (<4.4); CHOLESTEROL 145 mg/dL; CREATININE 0.7 mg/dL (0.4-1.0); GFR - MDRD 85 (>89); GLUCOSE 128 mg/dL (70-100); HDL CHOLESTEROL 93 mg/dL; POTASSIUM 4.7 mmol/L (3.5-5.0); SODIUM 136 mmol/L (135-145); TOTAL PROTEIN 7.2 g/dL (6.7-8.2); TRIGLYCERIDES 34 mg/dL
[2022-02-08 13:56] LABS: ESTIMATED AVERAGE GLUCOSE 146 mg/dL (70-100); HEMOGLOBIN A1c% 6.7 % (4.27-6.07)
== END 2022-02-08 08:23 | disposition home or self-care (01) ==
LOC: LAB.N 08:22
PROVIDERS: ATTEND Physician Assistant Medical
DX: E11.9 Type 2 diabetes mellitus without complications (principal)
CPT/HCPCS: 36415; 80053; 80061; 83036; 83721

== ENCOUNTER 2022-12-17 07:53 | Outpatient (CLI) | payer BC, MEDICAID ==
[2022-12-17 12:33] LABS: BASOPHILS # (AUTO) 0.1 10^3/uL (0.0-0.1); BASOPHILS % (AUTO) 1.1 %; EOSINOPHILS # (AUTO) 0.1 10^3/uL (0.0-0.7); EOSINOPHILS % (AUTO) 2.3 %; HGB - HEMOGLOBIN 15.1 g/dL (12.0-16.0); LYMPHOCYTES # (AUTO) 1.1 10^3/uL (1.5-3.5); LYMPHOCYTES % (AUTO) 18.4 %; MEAN CORPUSCULAR HEMOGLOBIN 34.6 pg (27.0-31.0); MEAN CORPUSCULAR HGB CONC 33.6 g/dL (32.0-36.0); MEAN CORPUSCULAR VOLUME 103.2 fL (81.0-99.0); MEAN PLATELET VOLUME 10.9 fL (7.9-10.8); MONOCYTES # (AUTO) 0.5 10^3/uL (0.0-1.0); MONOCYTES % (AUTO) 9.5 %; NEUTROPHILS # (AUTO) 3.9 10^3/uL (1.5-6.6); NEUTROPHILS % (AUTO) 68.3 %; PLT - PLATELET COUNT 175 10^3/uL (130-450); RED BLOOD COUNT 4.36 10^6/uL (4.20-5.40); RED CELL DISTRIBUTION WIDTH 14.2 % (12.0-15.0); WHITE BLOOD COUNT 5.7 x10^3/uL (4.8-10.8)
[2022-12-17 12:45] LABS: ESTIMATED AVERAGE GLUCOSE 157 mg/dL (70-100); HEMOGLOBIN A1c% 7.1 % (4.27-6.07)
[2022-12-17 13:01] LABS: ALBUMIN 4.4 g/dL (3.2-5.5); ALBUMIN/GLOBULIN RATIO 1.8 (1.0-2.2); ALKALINE PHOSPHATASE 51 IU/L (42-121); ALT ALANINE AMINOTRANSFERASE 15 IU/L (10-60); AST ASPARTATE AMINOTRANSFERASE 17 IU/L (10-42); BILIRUBIN,TOTAL 0.8 mg/dL (0.2-1.0); BUN - BLOOD UREA NITROGEN 17 mg/dL (6-20); CALCIUM 10.1 mg/dL (8.5-10.3); CARBON DIOXIDE - CO2 25 mmol/L (21-32); CHLORIDE 103 mmol/L (101-111); CHOL/HDL RATIO 1.5 (<4.4); CHOLESTEROL 157 mg/dL; CREATININE 0.7 mg/dL (0.6-1.3); GFR - MDRD 84 (>89); GLUCOSE 80 mg/dL (74-104); HDL CHOLESTEROL 103 mg/dL; LDL CHOLESTEROL,CALCULATED 45 mg/dL; LDL/HDL RATIO 0.4 (<4.4); SODIUM 137 mmol/L (135-145); TOTAL PROTEIN 6.9 g/dL (6.4-8.9); TRIGLYCERIDES 46 mg/dL (48-352); VLDL CHOLESTEROL 9 mg/dL
[2022-12-17 13:05] LABS: THYROID STIMULATING HORMONE 2.03 uIU/mL (0.34-5.60)
[2022-12-17 13:08] LABS: CREATININE,URINE 33.3 mg/dL; MICROALBUMIN,URINE < 0.7 mg/dL
== END 2022-12-17 07:54 | disposition home or self-care (01) ==
LOC: LAB.N 07:53
PROVIDERS: ATTEND Physician Assistant Medical
DX: I10 Essential (primary) hypertension (principal); E78.5 Hyperlipidemia, unspecified; E11.9 Type 2 diabetes mellitus without complications
CPT/HCPCS: 36415; 80053; 80061; 82043; 82570; 83036; 83721; 84443; 85025

== ENCOUNTER 2023-06-19 08:21 | Outpatient (CLI) | payer BC ==
[2023-06-19 12:14] LABS: ESTIMATED AVERAGE GLUCOSE 169 mg/dL (70-100); HEMOGLOBIN A1c% 7.5 % (4.27-6.07)
[2023-06-19 12:28] LABS: CREATININE,URINE 17.2 mg/dL; MICROALBUM/CREATININE RATIO,UR 139.5 ug/mg (<30.0); MICROALBUMIN,URINE 2.4 mg/dL
== END 2023-06-19 08:22 | disposition home or self-care (01) ==
LOC: LAB.N 08:21
PROVIDERS: ATTEND Physician Assistant Medical
DX: I10 Essential (primary) hypertension (principal); E11.9 Type 2 diabetes mellitus without complications
CPT/HCPCS: 36415; 80048; 82043; 82570; 83036

== ENCOUNTER 2023-06-21 11:42 | Outpatient (CLI) | payer BC | END 2023-06-21 11:43 | disposition home or self-care (01) | LOC: LAB.N 11:42 | PROVIDERS: ATTEND Physician Assistant Medical | DX: Z53.9 Procedure and treatment not carried out, unspecified reason (principal) ==

== ENCOUNTER 2023-07-25 07:19 | Outpatient (CLI) | payer BC ==
--- NOTE | 2023-07-25 14:03 | Ultrasound Report ---
PROCEDURE: Aorta Screening INDICATIONS: SCREENING FOR LUNG CA, HIST OF SMOKING TECHNIQUE: Real time scanning was performed of the aorta and iliac arteries, with image documentatio n. COMPARISON: None. FINDINGS: Aorta: Proximal aortic diameter measures 3.1 x 3.1 cm. Mid-aorta measures 1.4 x 1.5 cm. Distal aor tic diameter is 1.3 x 1.4 cm. Iliac arteries: Right common iliac artery measures 1.0 x 0.9 cm. Left common iliac artery measures 1.0 x 0.8 cm. IMPRESSION: Minimal prominence of the proximal aorta measuring 3.1 x 3.1 cm. Interval follow-up is recommended be low. Recommended intervals for follow-up imaging of ectatic aortas and abdominal aortic aneurysms, per ACR consensus guidelines: 2.5-2.9 cm: 5 years 3.0-3.4 cm: 3 years 3.5-3.9 cm: 2 years 4.0-4.4 cm: 1 year 4.5-4.9 cm: 6 months + endovascular referral 5.0-5.5 cm: 3-6 months + endovascular referral Reviewed by: Yeni Handy MD on 07/25/2023 2:02 PM PDT Approved by: Yeni Handy MD on 07/25/2023 2:02 PM PDT Station ID: [id number]
--- NOTE | 2023-07-25 22:30 | CT Report ---
PROCEDURE: Lung Cancer Screen INDICATIONS: SCREENING FOR LUNG CA, HIST OF SMOKING TECHNIQUE: A CT scan of the chest was performed. Intravenous contrast media was not administered. Images were re corded and evaluated at appropriate window settings. Reformats: axial MIP of the chest, coronal and s agittal. For radiation dose reduction, the following was used: automated exposure control, adjustment of mA and/or kV according to patient size. COMPARISON: CT chest 05/09/2022. FINDINGS: Image quality: Diagnostic. Prior cancer history: No. Lungs and pleura: No pleural effusions. No pneumothorax. Stable scattered pulmonary nodules measurin g up to 4 mm in the left lower lobe. No new or enlarging pulmonary nodule. Mediastinum: Heart size is normal. No pericardial effusion. No large vessel abnormality. No mediastin al adenopathy by size criteria. Mild coronary artery calcifications. Chest wall and lower neck: Thyroid is unremarkable. No axillary or supraclavicular adenopathy by size . Bones: No aggressive osseous abnormality. Upper Abdomen: Unremarkable. IMPRESSION: Stable scattered sub-6 mm pulmonary nodules. No new or enlarging pulmonary nodule. Lung RAD: 2 - Benign. Recommendation: Continue annual screening in 12 Months with LDCT Non-Lung Significant Findings: None. Reviewed by: Jewels Martines MD, PhD on 07/25/2023 9:29 PM SHILPA Approved by: Jewels Martines MD, PhD on 07/25/2023 9:29 PM SHILPA Station ID: [id number] [place] [id number]
== END 2023-07-25 07:20 | disposition home or self-care (01) ==
LOC: DI 07:19
PROVIDERS: ATTEND Physician Assistant Medical
DX: Z12.2 Encounter for screening for malignant neoplasm of respiratory organs (principal); Z13.6 Encounter for screening for cardiovascular disorders; R91.8 Other nonspecific abnormal finding of lung field; Z87.891 Personal history of nicotine dependence

== ENCOUNTER 2023-10-03 08:44 | Outpatient (CLI) | payer BC ==
[2023-10-03 12:06] LABS: BASOPHILS # (AUTO) 0.1 10^3/uL (0.0-0.1); BASOPHILS % (AUTO) 0.8 %; EOSINOPHILS # (AUTO) 0.1 10^3/uL (0.0-0.7); EOSINOPHILS % (AUTO) 1.9 %; HCT - HEMATOCRIT 46.4 % (37.0-47.0); HGB - HEMOGLOBIN 15.5 g/dL (12.0-16.0); LYMPHOCYTES # (AUTO) 0.9 10^3/uL (1.5-3.5); LYMPHOCYTES % (AUTO) 15.6 %; MEAN CORPUSCULAR HGB CONC 33.4 g/dL (32.0-36.0); MEAN CORPUSCULAR VOLUME 104.7 fL (81.0-99.0); MEAN PLATELET VOLUME 11.4 fL (7.9-10.8); MONOCYTES # (AUTO) 0.4 10^3/uL (0.0-1.0); MONOCYTES % (AUTO) 7.5 %; NEUTROPHILS # (AUTO) 4.4 10^3/uL (1.5-6.6); NEUTROPHILS % (AUTO) 73.9 %; PLT - PLATELET COUNT 175 10^3/uL (130-450); RED BLOOD COUNT 4.43 10^6/uL (4.20-5.40); RED CELL DISTRIBUTION WIDTH 14.6 % (12.0-15.0); WHITE BLOOD COUNT 5.9 x10^3/uL (4.8-10.8)
[2023-10-03 12:18] LABS: CHOL/HDL RATIO 1.6 (<4.4); CHOLESTEROL 142 mg/dL; HDL CHOLESTEROL 91 mg/dL; LDL CHOLESTEROL,CALCULATED 41 mg/dL; LDL/HDL RATIO 0.5 (<4.4); TRIGLYCERIDES 51 mg/dL; VLDL CHOLESTEROL 10 mg/dL
[2023-10-03 12:19] LABS: POTASSIUM 4.5 mmol/L (3.5-4.5)
[2023-10-03 12:40] LABS: ALBUMIN 4.4 g/dL (3.2-5.5); ALBUMIN/GLOBULIN RATIO 1.7 (1.0-2.2); ALKALINE PHOSPHATASE 44 IU/L (42-121); ALT ALANINE AMINOTRANSFERASE 13 IU/L (10-60); AST ASPARTATE AMINOTRANSFERASE 18 IU/L (10-42); BILIRUBIN,TOTAL 0.8 mg/dL (0.2-1.0); BUN - BLOOD UREA NITROGEN 14 mg/dL (6-20); CALCIUM 10.1 mg/dL (8.5-10.3); CARBON DIOXIDE - CO2 25 mmol/L (21-32); CHLORIDE 103 mmol/L (101-111); CREATININE 0.7 mg/dL (0.6-1.3); GFR - MDRD 84 (>89); GLUCOSE 168 mg/dL (74-104); SODIUM 136 mmol/L (135-145); THYROID STIMULATING HORMONE 1.39 uIU/mL (0.34-5.60)
[2023-10-03 12:58] LABS: ESTIMATED AVERAGE GLUCOSE 171 mg/dL (70-100); HEMOGLOBIN A1c% 7.6 % (4.27-6.07)
== END 2023-10-03 08:45 | disposition home or self-care (01) ==
LOC: LAB.N 08:44
PROVIDERS: ATTEND Physician Assistant Medical
DX: E78.5 Hyperlipidemia, unspecified (principal); E11.9 Type 2 diabetes mellitus without complications; I10 Essential (primary) hypertension
CPT/HCPCS: 36415; 80053; 80061; 83036; 83721; 84443; 85025